=== PATIENT | male | born 1990 | race Caucasian/White ===

== ENCOUNTER 2024-05-04 12:52 | Emergency (ER) | payer BC, MEDICAID, SELFPAY ==
[2024-05-04 12:56] VITALS: BP 132/92; PULSE 77; RESP 16; TEMP 36.4; O2SAT 98; BMI 26.6
[2024-05-04 13:06] VITALS: BP 124/98; PULSE 80; RESP 16; O2SAT 99
--- NOTE | 2024-05-04 13:11 | W.ED.GENADLT ---
HPI - General Adult General: Chief complaint: General Medical Stated complaint: medication refill/withdraws Time Seen by Provider: 05/04/24 12:55 Source: patient Mode of arrival: ambulatory Limitations: no limitations History of Present Illness: Patient is a 33-year-old male presents to ED today with a complaint of insomnia. Patient states he has not been able to sleep over the past 5 days or so. He states he has trouble falling asleep because he cannot shut his mind off. He has tried NyQuil but this has not seemed to work. Patient does state he has been on Xanex for many years for PTSD but has been out for the past 10 days. He does not want to be back on this medications. He also stopped his Seroquel a while back. States he wants to get off all of his medications because they are fucking him up . Denies drug use. States he has an upcoming appointment with [facility] next month. Thinks maybe he has a PCP appointment but not sure. Associated symptoms: Deny confusion, headache(s), nausea or vomiting Related Data Home Medications ?Medication ?Instructions ?Recorded ?Confirmed No Known Home Medications 05/04/24 05/04/24 Previous Rx's ?Medication ?Instructions ?Recorded ramelteon 8 mg tablet 8 mg PO .qhs #10 tabs 05/04/24 Allergies Allergy/AdvReac Type Severity Reaction Status Date / Time NKDA AdvReac Intermediate NKDA Uncoded 02/22/24 13:33 Review of Systems Const: Denies: fever(s) GI: Denies: nausea or vomiting Neuro: Denies: headache(s), numbness in extremities, weakness in extremities, sensory changes, lack of coordination, difficulty walking, confusion or behavioral changes Psych: Denies: visual hallucinations or auditory hallucinations [facility] ED PFSH: Medical History Psychiatric care Physical Exam Const: COMMON NORMALS: no acute distress, average body habitus, patient oriented x3, no limitations, healthy appearing, alert and well nourished Resp: COMMON NORMALS: normal respiratory effort and clear to auscultation bilaterally AUSCULTATION: clear to auscultation bilaterally Cardio: COMMON NORMALS: regular rate and regular rhythm RATE: regular rate RHYTHM: regular rhythm Neuro: COMMON NORMALS: patient oriented x3 SENSORIUM/ORIENTATION: Yes alert Psych: COMMON NORMALS: mental status grossly normal, Normal thought process present, cooperative, normal affect, speech normal, activity/motor behavior normal, denies hallucinations, denies homicidal ideation and denies suicidal ideation APPEARANCE: Yes grossly normal ATTITUDE: Yes calm ACTIVITY/MOTOR BEHAVIOR: Yes appropriate eye contact SPEECH: Yes normal speech MOOD & AFFECT: Yes euthymic mood THOUGHT PROCESS: Normal thought process present THOUGHT CONTENT: Yes Normal thought content present ATTENTION/CONCENTRATION: Yes attention grossly intact and Yes concentration grossly intact MEMORY/COGNITION: Yes memory grossly intact and Yes cognition grossly intact INSIGHT: Fair insight present (Psych) JUDGEMENT: Fair judgement present (Psych) Course Vital Signs: Vital signs: Vital Signs Temperature 97.6 F 05/04/24 12:56 Pulse Rate 74 05/04/24 13:34 Respiratory Rate 16 05/04/24 13:34 Blood Pressure 112/84 05/04/24 13:34 Pulse Oximetry 99 05/04/24 13:34 Oxygen Delivery Me thod Room Air 05/04/24 12:56 MDM - General Adult Medical Decision Making Patient has been out of his xanax for approximately 10 days now. Certainly insomnia can be a symptom of benzodiazepine withdrawal however he does not have any other significant withdrawal symptoms. Given the short acting nature of xanax, he is most likely outside of the window for significant withdrawal symptoms including seizure, psychosis, etc. Patient does have an upcoming appointment with [facility]. I will place him on ramelteon to help with his insomnia. Medical Records I reviewed the patient's medical records. No radiology studies performed this visit Discharge Plan Discharge Patient Disposition: Home Clinical Impression: Insomnia Qualifiers: Insomnia type: unspecified Qualified Code(s): G47.00 - Insomnia, unspecified Condition: Stable Prescriptions: New ramelteon 8 mg tablet 8 mg PO .qhs Qty: 10 0RF No Action No Known Home Medications Discharge Orders: Discharge ED (Routine); Ordered 05/04/24 Ordered By: Carmela Preston Patient Instructions: Insomnia (ED) Activity Restrictions/Additional Instructions: As we discussed, please follow-up with primary care and/or [facility] at your upcoming follow-up appointments for further evaluation/treatment. Print Language: [place] Coding Level of Care Code ED [employer] for Eric Cesar
--- NOTE | 2024-05-04 13:21 | PC.NURSE ---
this nurse assumed pt care from KARISSA Garcia at 1315.
--- NOTE | 2024-05-04 13:21 | PC.PHAR ---
patient states he quit taking alprazolam/fluoxetine/quetiapine, just wants a medication to get some sleep, hasnt slept in 4-5 days
[2024-05-04 13:34] VITALS: BP 112/84; PULSE 74; RESP 16; O2SAT 99
--- NOTE | 2024-05-04 13:43 | DCPLANNER ---
messaged [facility] for er f/u
== END 2024-05-04 13:33 | disposition home or self-care (01) ==
PROVIDERS: Emergency Provider Physician Assistant
DX: G47.00 Insomnia, unspecified (principal)
CPT/HCPCS: 99283